=== PATIENT | male | born 1995 | race African-American/Black ===

== ENCOUNTER 2016-08-30 20:04 | Emergency (ER) | payer OTHER ==
[2016-08-31] MEDS ORDERED: DOXYCYCLINE HYCLATE 100 MG TABLET PO ONE (01:13)
[2016-08-31] MEDS ORDERED: LIDOCAINE 1% INJ-PF (10 MG/ML) 30 ML SDV INJ ONE (01:13)
--- NOTE | 2016-08-31 01:14 | ER Document Report ---
ED Wound - General Chief Complaint: Thumb laceration Stated Complaint: FINGER LACERATION Time seen by provider: 01:10 Notes: Patient is a 20-year-old male that comes emergency department for chief complaint of laceration to the top of his right thumb, he states he was using a knife to cut eat at work when this happened. He denies any other injuries. He is a diabetic, medicated. He states his tetanus was updated within the past year. TRAVEL OUTSIDE OF THE [place] IN LAST 30 DAYS: No - Related Data Allergies/Adverse Reactions: No Known Allergies Allergy (Unverified 08/31/16 00:37) Home Medications: Current Home Medications Valsartan/Hydrochlorothiazide [Valsartan-Hctz 320-25 mg Tab] 1 tab PO DAILY [History] Past Medical History - General Information source: Patient - Social History Smoking Status: Never Smoker Frequency of alcohol use: None Drug Abuse: None Lives with: Family Family History: Reviewed & Not Pertinent - Past Medical History Cardiac Medical History: Reports: Hx Hypertension Endocrine Medical History: Reports: Hx Diabetes Mellitus Type 2 Renal/ Medical History: Denies: Hx Peritoneal Dialysis Surgical Hx: Negative - Immunizations Immunizations up to date: Yes Hx Diphtheria, Pertussis, Tetanus Vaccination: Yes Review of Systems - Review of Systems Constitutional: No symptoms reported EENT: No symptoms reported Cardiovascular: No symptoms reported Respiratory: No symptoms reported Gastrointestinal: No symptoms reported Genitourinary: No symptoms reported Male Genitourinary: No symptoms reported Musculoskeletal: See HPI Skin: See HPI Hematologic/Lymphatic: No symptoms reported Neurological/Psychological: No symptoms reported Physical Exam - Vital signs Vitals: Temp Pulse Resp BP Pulse Ox 98.1 F 96 18 146/93 H 100 08/31/16 02:34 08/31/16 02:34 08/31/16 02:34 08/31/16 02:34 08/31/16 02:34 Interpretation: Normal - General General appearance: Appears well, Alert - HEENT Head: Normocephalic, Atraumatic Eyes: Normal Pupils: PERRL - Respiratory Respiratory status: No respiratory distress Chest status: Nontender Breath sounds: Normal Chest palpation: Normal - Cardiovascular Rhythm: Regular Heart sounds: Normal auscultation Murmur: No - Abdominal Inspection: Normal Distension: No distension Bowel sounds: Normal Tenderness: Nontender Organomegaly: No organomegaly - Back Back: Normal, Nontender - Extremities General upper extremity: Other - Right thumb with a laceration just before the DIP over the dorsal aspect, 1.5 cm in length, flap, partial thickness, full range of motion of the thumb is intact, normal sensation and capillary refill General lower extremity: Normal inspection, Nontender, Normal color, Normal ROM , Normal temperature, Normal weight bearing - Neurological Neuro grossly intact: Yes Cognition: Normal Orientation: AAOx4 [place] Coma Scale Eye Opening: Spontaneous Javon Coma Scale Verbal: Oriented [place] Coma Scale Motor: Obeys Commands Javon Coma Scale Total: 15 Speech: Normal Motor strength normal: LUE, RUE, LLE, RLE Sensory: Normal - Psychological Associated symptoms: Normal affect, Normal mood - Skin Skin Temperature: Warm Skin Moisture: Dry Skin Color: Normal Course - Re-evaluation Re-evalutation: Close examination does not indicate tendon laceration or other abnormality, wound irrigated, repaired, dressed, discussed wound care, discussed return precautions, patient states understanding and agreement. - Vital Signs Vital signs: Temp Pulse Resp BP Pulse Ox 98.1 F 96 18 146/93 H 100 08/31/16 02:34 08/31/16 02:34 08/31/16 02:34 08/31/16 02:34 08/31/16 02:34 Procedures - Laceration/Wound Repair right thumb Wound length (cm): 1.5 Wound's Depth, Shape: Irregular, Flap Laceration pre-procedure: Sterile PPE donned, Sterile drapes applied, Other - Surgical cleanser Anesthetic type: 1% Lidocaine Volume Anesthetic (mLs): 3 Wound explored: Clean, No foreign body removed Irrigated w/ Saline (mLs): 40 Wound Repaired With: Sutures Suture Size/Type: 5:0, Nylon Number of Sutures: 4 Layer Closure?: No Post-procedure wound care: Sterile dressing applied Post-procedure NV exam normal: Yes Complications: No Discharge - Discharge Clinical Impression: Thumb laceration Qualifiers: Encounter type: initial encounter Laterality: right Qualified Code(s): S61.011A - Laceration without foreign body of right thumb without damage to nail , initial encounter Condition: Stable Disposition: HOME, SELF-CARE Additional Instructions: The sutures need to come out in 7 days. Keep clean, clean gently with soap and water, avoid soaking. You can apply a thin film of antibiotic. Take antibiotic as directed, return immediately for any signs of infection including redness, swelling, discolored drainage, fever, etc. Prescriptions: Doxycycline Hyclate 100 mg PO BID #10 capsule Forms: Return to Work, Elevated Blood Pressure Referrals: BANDAR RICE MD [Primary Care Provider] - Follow up as needed
[2016-08-31 02:35] VITALS: BP 146/93
== END 2016-08-31 02:33 | disposition home or self-care (01) ==
LOC: ER 20:04
PROC: 0HQFXZZ Repair Right Hand Skin, External Approach (ICD-10-PCS; principal; 2016-08-30)
DX: S61.011A Laceration without foreign body of right thumb without damage to nail, initial encounter (principal); Z79.899 Other long term (current) drug therapy; W26.0XXA Contact with knife, initial encounter
CPT/HCPCS: 99282; 12001; J3490

== ENCOUNTER 2016-09-08 09:59 | Emergency (ER) | payer OTHER ==
[2016-09-08 10:10] VITALS: BP 151/98
--- NOTE | 2016-09-08 10:31 | ER Document Report ---
HPI - HPI Patient complains to provider of: suture removal Onset: Last week Quality of pain: Achy, Other Severity: Mild Pain Level: 2 Context: Patient has had sutures in place since last . Denies any problems with the wound. Associated Symptoms: None Exacerbated by: Movement Relieved by: Denies Similar symptoms previously: Yes Recently seen / treated by doctor: Yes - ROS ROS below otherwise negative: Yes Systems Reviewed and Negative: Yes All other systems reviewed and negative - CONSTITUTIONAL Constitutional: DENIES: Fever - EENT EENT: DENIES: Congestion - NEURO Neurology: DENIES: Headache - CARDIOVASCULAR Cardiovascular: DENIES: Chest pain - RESPIRATORY Respiratory: DENIES: Trouble Breathing - GASTROINTESTINAL Gastrointestinal: DENIES: Abdominal Pain - MUSCULOSKELETAL Musculoskeletal: REPORTS: Extremity pain - right thumb - DERM Skin Color: Normal Skin Problems: Laceration - right thumb Past Medical History - General Information source: Patient - Social History Smoking Status: Unknown if Ever Smoked Frequency of alcohol use: None Drug Abuse: None Lives with: Family Family History: Reviewed & Not Pertinent Patient has suicidal ideation: No Patient has homicidal ideation: No - Past Medical History Cardiac Medical History: Reports: Hx Hypertension Endocrine Medical History: Reports: Hx Diabetes Mellitus Type 2 Renal/ Medical History: Denies: Hx Peritoneal Dialysis Surgical Hx: Negative - Immunizations Immunizations up to date: Yes Hx Diphtheria, Pertussis, Tetanus Vaccination: Yes Vertical Provider Document - CONSTITUTIONAL Agree With Documented VS: Yes Exam Limitations: No Limitations General Appearance: WD/WN, No Apparent Distress - INFECTION CONTROL TRAVEL OUTSIDE OF THE [place] IN LAST 30 DAYS: No - HEENT HEENT: Atraumatic, Normocephalic - RESPIRATORY Respiratory: Breath Sounds Normal, No Respiratory Distress O2 Sat by Pulse Oximetry: 97 - CARDIOVASCULAR Cardiovascular: Regular Rate, Regular Rhythm - MUSCULOSKELETAL/EXTREMETIES Musculoskeletal/Extremeties: MAEW, FROM, Tender - At suture site on right thumb - NEURO Level of Consciousness: Awake, Alert, Appropriate - DERM Integumentary: Warm, Dry - 4 sutures intact to right thumb without signs and symptoms of infection. Course - Re-evaluation Re-evalutation: 09/08/16 10:35 4 sutures removed without difficulty from right thumb. Patient tolerated procedure well. - Vital Signs Vital signs: Temp Pulse Resp BP Pulse Ox 98.3 F 75 16 151/98 H 97 09/08/16 10:09 09/08/16 10:09/08/16 10:09 09/08/16 10:09/08/16 10:09 Discharge - Discharge Clinical Impression: Visit for suture removal Condition: Good Disposition: HOME, SELF-CARE Additional Instructions: Keep wound clean and dry Follow with PCP or return if any problems
== END 2016-09-08 10:50 | disposition home or self-care (01) ==
LOC: ER 09:59
DX: S61.011D Laceration without foreign body of right thumb without damage to nail, subsequent encounter (principal); X58.XXXD Exposure to other specified factors, subsequent encounter; E11.9 Type 2 diabetes mellitus without complications; I10 Essential (primary) hypertension

== ENCOUNTER → 2018-09-06 | Outpatient (CLI) | payer OTHER ==
--- NOTE | 2018-09-06 15:53 | RADIOLOGY REPORT (SQ) ---
EXAM DESCRIPTION: ABDOMEN 2 VIEWS COMPLETED DATE/TIME: 09/06/2018 3:44 pm REASON FOR STUDY: GENERALIZED ABDOMINAL PAIN R10.84 GENERALIZED ABDOMINAL PAIN COMPARISON: None. NUMBER OF VIEWS: Two views. TECHNIQUE: Supine and erect/decubitus radiographic images of the abdomen acquired. LIMITATIONS: None. FINDINGS: FREE AIR: None. No abnormal gas collections. LUNG BASES: Clear. BOWEL GAS PATTERN: Nonobstructive pattern. No dilated loops or air fluid levels. CALCIFICATIONS: No suspicious calcifications. SOFT TISSUES: No gross mass or suggestion of organomegaly. HARDWARE: None in the abdomen. BONES: No acute fracture. No worrisome bone lesions. OTHER: No other significant finding. IMPRESSION: NO RADIOGRAPHIC EVIDENCE FOR ACUTE ABDOMINAL DISEASE. TECHNICAL DOCUMENTATION: JOB ID: [id number] [employer]- All Rights Reserved Reading location - IP/workstation name: [email or web address]
[2018-09-06 17:09] LABS: ALANINE AMINOTRANSFERASE 59 U/L (21-72); ALBUMIN 4.1 g/dL (3.5-5.0); ALKALINE PHOSPHATASE 59 U/L (38-126); ANION GAP 17 (5-19); ASPARTATE AMINO TRANSFERASE 27 U/L (17-59); BILIRUBIN,DIRECT 0.4 mg/dL (0.0-0.4); BILIRUBIN,TOTAL 1.2 mg/dL (0.2-1.3); BLOOD UREA NITROGEN 28 mg/dL (7-20); CARBON DIOXIDE 24 mmol/L (22-30); CHLORIDE 94 mmol/L (98-107); GLUCOSE 313 mg/dL (75-110); POTASSIUM 3.6 mmol/L (3.6-5.0); SODIUM 134.5 mmol/L (137-145); TOTAL PROTEIN 6.7 g/dL (6.3-8.2)
[2018-09-06 17:12] LABS: ABSOLUTE LYMPHOCYTES (AUTO) 1.5 10^3/uL (0.5-4.7); ABSOLUTE MONOCYTES (AUTO) 0.7 10^3/uL (0.1-1.4); ABSOLUTE NEUT (AUTO) 1.6 10^3/uL (1.7-8.2); BASOPHILS % (AUTO) 0.2 % (0-2); EOSINOPHILS % (AUTO) 1.2 % (0-6); HEMATOCRIT 48.3 % (37.9-51.0); HEMOGLOBIN 17.4 g/dL (13.5-17.0); MEAN CORPUSCULAR VOLUME 81 fl (80-97); MONOCYTES % (AUTO) 17.3 % (3-13); PLATELET COUNT 299 10^3/uL (150-450); RED CELL DISTRIBUTION WIDTH 12.7 % (11.5-14.0); SEGMENTED NEUTROPHILS % (AUTO) 41.3 % (42-78); TOTAL CELLS COUNTED % (AUTO) 100 %; WHITE BLOOD COUNT 3.9 10^3/uL (4.0-10.5)
== END ==
LOC: OD 15:16
PROVIDERS: ATTEND Family Medicine
DX: R10.84 Generalized abdominal pain (principal)
CPT/HCPCS: 36415; 74019; 80053; 83690; 85025

== ENCOUNTER → 2018-09-13 | Outpatient (CLI) | payer OTHER ==
--- NOTE | 2018-09-13 08:47 | RADIOLOGY REPORT (SQ) ---
EXAM DESCRIPTION: U/S ABDOMEN COMPLETE W/O DOP COMPLETED DATE/TIME: 09/13/2018 7:58 am REASON FOR STUDY: GENERALIZED ABD PAIN (R10.84), ELEVATED LIPASE (R74.8) R10.84 GENERALIZED ABDOMIN AL PAIN COMPARISON: None. TECHNIQUE: Dynamic and static grayscale images acquired of the abdomen and recorded on PACS. Additio nal selected color Doppler and spectral images recorded. Note: Study does not meet criteria for complete doppler/duplex scan LIMITATIONS: None. FINDINGS: PANCREAS: The pancreas is obscured by overlying bowel gas. LIVER: No masses. Echotexture normal. LIVER VASCULATURE: Normal directional flow of the main portal vein and hepatic veins. GALLBLADDER: There is gallbladder sludge. No wall thickening. No pericholecystic edema. ULTRASOUND-DETECTED CISNEROS'S SIGN: Negative. INTRAHEPATIC DUCTS AND COMMON DUCT: CBD and intrahepatic ducts normal caliber. No filling defects. INFERIOR VENA CAVA: Normal flow. AORTA: No aneurysm. RIGHT KIDNEY: Normal size. Normal echogenicity. No solid or suspicious masses. No hydronephros is. No calcifications. LEFT KIDNEY: Normal size. Normal echogenicity. No solid or suspicious masses. No hydronephrosi s. No calcifications. SPLEEN: Normal size. No solid masses. PERITONEAL AND PLEURAL SPACES: No ascites or effusions. OTHER: No other significant finding. IMPRESSION: Gallbladder sludge. No other significant findings. The pancreas is obscured by overlyi ng bowel gas. TECHNICAL DOCUMENTATION: JOB ID: [id number] [employer]- All Rights Reserved Reading location - IP/workstation name: [email or web address]
== END ==
LOC: RAD 07:10
PROVIDERS: ATTEND Family Medicine
DX: R10.84 Generalized abdominal pain (principal); R74.8 Abnormal levels of other serum enzymes
CPT/HCPCS: 76700